=== PATIENT | male | born 1980 | race American Indian/Alaskan Native ===

== ENCOUNTER 2019-03-11 22:48 | Emergency (ER) | payer SELFPAY ==
[2019-03-12 00:06] LABS: Basophils % (Auto) 0.5 % (0.0-1.8); Eosinophils % (Auto) 0.1 % (0.0-4.3); Hematocrit 36.2 % (35.5-45.6); Hemoglobin 12.5 gm/dl (11.8-15.2); Lymphocytes # (Auto) 1.3 K/mm3 (1.2-5.4); Lymphocytes % (Auto) 13.8 % (13.4-35.0); Mean Corpuscular HGB Conc 35 % (32-34); Mean Corpuscular Volume 83 fl (84-94); Monocytes # (Auto) 0.6 K/mm3 (0.0-0.8); Monocytes % (Auto) 6.4 % (0.0-7.3); Platelet Count 173 K/mm3 (140-440); Red Blood Count 4.35 M/mm3 (3.65-5.03); Red Cell Distribution Width 13.1 % (13.2-15.2)
[2019-03-12 00:23] LABS: BUN/Creatinine Ratio 14; Blood Urea Nitrogen 14 mg/dL (9-20); Calcium 9.1 mg/dL (8.4-10.2); Hemolysis Index 4
[2019-03-12 00:39] LABS: Bilirubin,Urine NEG (Negative); Blood,Urine NEG (Negative); Color,Urine Yellow (Yellow); Mucus,Urine FEW /HPF; Protein,Urine <15 mg/dL mg/dL (Negative); Urobilinogen,Urine < 2.0 mg/dL (<2.0); WBC,Urine < 1.0 /HPF (0.0-6.0)
--- NOTE | 2019-03-12 00:55 | Emergency Department Report ---
ED Psych HPI - General Chief Complaint: Psych Stated Complaint: SUICIDAL Time Seen by Provider: 03/11/19 23:29 Source: patient, EMS Mode of arrival: Ambulatory - History of Present Illness Initial Comments: Patient is a 39-year-old -[place] male who is here because of suicidal ideations. Patient states that he just got out [facility] and really what this visit his girlfriend and his child he went to her phone and saw that she was unfaithful to him. Patient states he is very upset and he feels as though there is no reason for him to be living anymore. Patient does not have a plan in particular for how he would commit suicide. Patient is feeling very depressed. Patient denies any past medical problems. - Related Data Allergies Allergy/AdvReac Type Severity Reaction Status Date / Time No Known Allergies Allergy Unverified 03/11/19 23:43 ED Review of Systems ROS: Stated complaint: SUICIDAL Other details as noted in HPI Comment: All other systems reviewed and negative ED Past Medical Hx - Past Medical History Previous Medical History?: Yes Hx Psychiatric Treatment: Yes (BIPOLAR) Hx Asthma: Yes Additional medical history: PTSD, COLLAPSED LUNG, TUBE PLACEMENT IN HIS LEFT LUNG - Surgical History Past Surgical History?: No - Social History Smoking Status: Current Every Day Smoker Substance Use Type: Marijuana ED Physical Exam - General Limitations: No Limitations General appearance: alert, in no apparent distress - Head Head exam: Present: atraumatic, normocephalic - Eye Eye exam: Present: normal appearance - ENT ENT exam: Present: mucous membranes moist - Neck Neck exam: Present: normal inspection - Respiratory Respiratory exam: Present: normal lung sounds bilaterally. Absent: respiratory distress, wheezes, rales, rhonchi - Cardiovascular Cardiovascular Exam: Present: regular rate, normal rhythm. Absent: systolic murmur, diastolic murmur, rubs, gallop - GI/Abdominal GI/Abdominal exam: Present: soft, normal bowel sounds. Absent: distended, tenderness, guarding, rebound - Rectal Rectal exam: Present: deferred - Extremities Exam Extremities exam: Present: normal inspection - Back Exam Back exam: Present: normal inspection - Neurological Exam Neurological exam: Present: alert, oriented X3 - Psychiatric Psychiatric exam: Present: normal affect, depressed, suicidal ideation - Skin Skin exam: Present: warm, dry, intact, normal color. Absent: rash ED Course Vital Signs 03/11/19 03/11/19 03/12/19 23:25 23:45 03:00 Temperature 98.1 F 98.1 F 98.6 F Pulse Rate 92 H 92 H 94 H Respiratory 18 18 18 Rate Blood Pressure 112/78 Blood Pressure 112/78 112/61 [Left] O2 Sat by Pulse 98 98 100 Oximetry - Reevaluation(s) Reevaluation #1: 03/12/19 00:54 Patient is medically cleared at this time for placement in psychiatric facility ED Medical Decision Making - Lab Data Result diagrams: 03/11/19 23:52 03/11/19 23:52 Lab Results 03/11/19 03/11/19 03/11/19 Range/Units 23:52 23:52 23:56 WBC 9.3 (4.5-11.0) K/mm3 RBC 4.35 (3.65-5.03) M/mm3 Hgb 12.5 (11.8-15.2) gm/dl Hct 36.2 (35.5-45.6) % MCV 83 L (84-94) fl MCH 29 (28-32) pg MCHC 35 H (32-34) % RDW 13.1 L (13.2-15.2) % Plt Count 173 (140-440) K/mm3 Lymph % (Auto) 13.8 (13.4-35.0) % [place] % (Auto) 6.4 (0.0-7.3) % Eos % (Auto) 0.1 (0.0-4.3) % Baso % (Auto) 0.5 (0.0-1.8) % Lymph # 1.3 (1.2-5.4) K/mm3 [place] # 0.6 (0.0-0.8) K/mm3 Eos # 0.0 (0.0-0.4) K/mm3 Baso # 0.0 (0.0-0.1) K/mm3 Seg Neutrophils % 79.2 H (40.0-70.0) % Seg Neutrophils # 7.3 (1.8-7.7) K/mm3 Sodium 138 (137-145) mmol/L Potassium 4.1 (3.6-5.0) mmol/L Chloride 100.2 (98-107) mmol/L Carbon Dioxide 26 (22-30) mmol/L Anion Gap 16 mmol/L BUN 14 (9-20) mg/dL Creatinine 1.0 (0.8-1.5) mg/dL Estimated GFR > 60 ml/min BUN/Creatinine Ratio 14 % Glucose 89 (75-100) mg/dL Calcium 9.1 (8.4-10.2) mg/dL Urine Bilirubin (Negative) Urine RBC (Auto) (0.0-6.0) /HPF Salicylates < 0.3 L (2.8-20.0) mg/dL Acetaminophen (10.0-30.0) ug/mL Plasma/Serum Alcohol (0-0.07) % 03/11/19 03/11/19 03/12/19 Range/Units 23:56 23:56 00:10 WBC (4.5-11.0) K/mm3 RBC (3.65-5.03) M/mm3 Hgb (11.8-15.2) gm/dl Hct (35.5-45.6) % MCV (84-94) fl MCH (28-32) pg MCHC (32-34) % RDW (13.2-15.2) % Plt Count (140-440) K/mm3 Lymph % (Auto) (13.4-35.0) % [place] % (Auto) (0.0-7.3) % Eos % (Auto) (0.0-4.3) % Baso % (Auto) (0.0-1.8) % Lymph # (1.2-5.4) K/mm3 [place] # (0.0-0.8) K/mm3 Eos # (0.0-0.4) K/mm3 Baso # (0.0-0.1) K/mm3 Seg Neutrophils % (40.0-70.0) % Seg Neutrophils # (1.8-7.7) K/mm3 Sodium (137-145) mmol/L Potassium (3.6-5.0) mmol/L Chloride (98-107) mmol/L Carbon Dioxide (22-30) mmol/L Anion Gap mmol/L BUN (9-20) mg/dL Creatinine (0.8-1.5) mg/dL Estimated GFR ml/min BUN/Creatinine Ratio % Glucose (75-100) mg/dL Calcium (8.4-10.2) mg/dL Urine Bilirubin Neg (Negative) Urine RBC (Auto) 4.0 (0.0-6.0) /HPF Salicylates (2.8-20.0) mg/dL Acetaminophen < 5.0 L (10.0-30.0) ug/mL Plasma/Serum Alcohol < 0.01 (0-0.07) % Critical care attestation.: If time is entered above; I have spent that time in minutes in the direct care of this critically ill patient, excluding procedure time. ED Disposition Clinical Impression: Suicidal ideation, Encounter for psychiatric assessment Disposition: DC/TX-65 PSY HOSP/PSY UNIT Is pt being admited?: No Does the pt Need Aspirin: No Condition: Stable Time of Disposition: 04:17
[2019-03-12 01:00] LABS: Amphetamine Screen,Urine PRESUMPTIVE POSITIVE
[2019-03-12 01:17] LABS: Benzodiazepines Screen,Urine PRESUMPTIVE NEGATIVE; Cocaine Screen,Urine PRESUMPTIVE NEGATIVE; Methadone Screen,Urine PRESUMPTIVE NEGATIVE; Opiate Screen,Urine PRESUMPTIVE NEGATIVE
[2019-03-12 01:31] LABS: Cannabinoid Screen,Urine PRESUMPTIVE POSITIVE
--- NOTE | 2019-03-12 11:50 | Consultation ---
History of Present Illness - Reason for Consult Consult date: 03/12/19 Reason for consult: Mental Health Evaluation Requesting physician: NISREEN MARTINEZ - Chief Complaint Chief complaint: 'I'm crushed" - History of Present Psychiatric Illness 39 y/o/ AA male who presented to the ER for SI's. Today the patient was emotional during he assessment. He stated that he was released from shelter and found out that his child's mother was "cheating." He stated that she never told him about her actions, so he felt "betrayed." He stated that he has no reason to live now. He stated that he have not slept or days. He denies a previous suicide attempt nor have he taken any medication in the past for depression. He rate his depression 7/10, with 10 being the worse. He denies HI's and AVH's. He endorsed SI's without a plan. He denies a poor appetite. He denies smoking or ingesting amphetamines, but acknowledged smoking marijuana often. He denies alcohol consumption (etoh). Medications and Allergies Allergies Allergy/AdvReac Type Severity Reaction Status Date / Time No Known Allergies Allergy Unverified 03/11/19 23:43 Past psychiatric history - Past Medical History Past Medical History: No medical history Past Surgical History: No surgical history - past Psychiatric treatment and history psychiatric treatment history: Denies a psy hx and fam psy hx. - Social History Social history: other (Homeless) Mental Status Exam - Vital signs Last Vital Signs Temp 97.6 F 03/12/19 08:32 Pulse 88 03/12/19 08:32 Resp 16 03/12/19 08:32 BP 123/74 03/12/19 08:32 Pulse Ox 98 03/12/19 08:32 - Exam Narrative exam: MSE: Appearance: in hospital attire Behavior: regular eye contact Speech: regular rate and tone Mood: emotional Affect: congruent to mood Thought Process: circumstantial Thought Content: denies HI's and AVH's Motor Activity: ambulatory Cognition: A/O x 3 Insight: fair Judgment: poor Results Result Diagrams: 03/11/19 23:52 03/11/19 23:52 Abnormal lab results 03/11/19 03/11/19 03/11/19 Range/Units 23:52 23:56 23:56 MCV 83 L (84-94) fl MCHC 35 H (32-34) % RDW 13.1 L (13.2-15.2) % Seg Neutrophils % 79.2 H (40.0-70.0) % Salicylates < 0.3 L (2.8-20.0) mg/dL Acetaminophen < 5.0 L (10.0-30.0) ug/mL All other labs normal. Assessment and Plan Assessment and plan: Impression: MDD, Severe Type. Cannabis Use DO. Today the patient was emotional, but cooperative during the assessment. . DDx: Substance Induced Mood DO Recommendation/Plan: Continue 1013 and start Remeron 15 mg PO HS for depression. Discussed possible suicidality/medication induced ajay with the patient reference Remeron, he verbalized understanding. Dispo: The patient was referred to inpatient psy services. Will staff with Dr. Magalie Wild.
[2019-03-12] MEDS: REMERON PO SCH (22:24)
--- NOTE | 2019-03-13 11:55 | Progress Note ---
Subjective - Reason for Consult Consult date: 03/13/19 Reason for consult: Psychiatry Follow-up - Chief Complaint Chief complaint: '"It's hard" 39 y/o/ AA male who presented to the ER for SI's. Today the patient was calm and cooperative during the assessment. He stated that it's hard for him to think about what happened. He's still endorsing SI's. He denies HI's and AVH's. He denies any side effects of his medication. Mental Status Exam - Vital signs Last Vital Signs Temp 97.7 F 03/13/19 07:56 Pulse 72 03/13/19 07:56 Resp 18 03/13/19 07:56 BP 101/69 03/13/19 07:56 Pulse Ox 99 03/13/19 07:56 - Exam Narrative exam: MSE: Appearance: in hospital attire Behavior: regular eye contact Speech: regular rate and tone Mood: 'okay" Affect: congruent to mood Thought Process: circumstantial Thought Content: denies HI's and AVH's Motor Activity: ambulatory Cognition: A/O x 3 Insight: fair Judgment: poor Assessment and Plan Impression: MDD, Severe Type. Cannabis Use DO. Today the patient was calm and cooperative during the assessment. . DDx: Substance Induced Mood DO Recommendation/Plan: Continue 1013 and Remeron 15 mg PO HS for depression. Discussed possible suicidality/medication induced ajay with the patient reference Remeron, he verbalized understanding. Discussed generalized coping skills with petient, he verbalized understanding. Dispo: The patient was referred to inpatient psy services. Will staff with Dr. Magalie Wild.
[2019-03-13] MEDS: REMERON PO SCH (22:35)
--- NOTE | 2019-03-14 12:23 | Progress Note ---
Subjective - Reason for Consult Consult date: 03/14/19 Reason for consult: Psychiatry Follow-up - Chief Complaint Chief complaint: '"I'm thought about my future" 39 y/o/ AA male who presented to the ER for SI's. Today the patient was calm and cooperative during the assessment. He stated that he have thought about his future. He stated that he will make better decision and get on his "feet." He stated that his business liaison officer have a place for him to go (long-term) when discharged. He denies SI/HI's and AVH's. He denies any side effects of his medication. Mental Status Exam - Vital signs Last Vital Signs Temp 97.9 F 03/14/19 10:15 Pulse 72 03/14/19 10:15 Resp 18 03/14/19 10:15 BP 114/80 03/14/19 10:15 Pulse Ox 99 03/14/19 10:15 - Exam Narrative exam: MSE: Appearance: calm, cooperative Behavior: regular eye contact Speech: regular rate and tone Mood: 'okay" Affect: congruent to mood Thought Process: circumstantial Thought Content: denies SI/HI's and AVH's Motor Activity: ambulatory Cognition: A/O x 3 Insight: fair Judgment variable to fair Assessment and Plan Impression: MDD, Severe Type. Cannabis Use DO. Today the patient was calm and cooperative during the assessment. . DDx: Substance Induced Mood DO Recommendation/Plan: Reevaluate the patient's 1013 n 24 hours. Continue Remeron 15 mg PO HS for depression. Discussed possible suicidality/medication induced ajay with the patient reference Remeron, he verbalized understanding. Discussed generalized coping skills with petient, he verbalized understanding. Dispo: If the patient's 1013 is rescinded, he can follow up with [facility] for outpatient psy services. Will staff with Dr. Magalie Wild.
[2019-03-14] MEDS: REMERON PO SCH (23:05)
--- NOTE | 2019-03-15 08:37 | Progress Note ---
Subjective - Reason for Consult Consult date: 03/15/19 Reason for consult: Psychiatry Follow-up - Chief Complaint Chief complaint: '"I'm play" 39 y/o/ AA male who presented to the ER for SI's. Today the patient was calm and cooperative during the assessment. He stated that he look forward to being discharged. He stated that he will follow up with outpatient psy services. He denies SI/HI's and AVH's. He denies any side effects of his medication. Mental Status Exam - Vital signs Last Vital Signs Temp 97.8 F 03/15/19 03:17 Pulse 77 03/15/19 03:17 Resp 18 03/15/19 03:17 BP 124/90 03/15/19 03:17 Pulse Ox 98 03/15/19 03:17 - Exam Narrative exam: MSE: Appearance: calm, cooperative Behavior: regular eye contact Speech: regular rate and tone Mood: 'okay" Affect: congruent to mood Thought Process: linear Thought Content: denies SI/HI's and AVH's Motor Activity: ambulatory Cognition: A/O x 3 Insight: appropriate Judgment appropriate Assessment and Plan Impression: MDD, Severe Type. Cannabis Use DO. Today the patient was calm and cooperative during the assessment. The patient is not threat to self. DDx: Substance Induced Mood DO Recommendation/Plan: Rescind 1013. Continue Remeron 15 mg PO HS for depression. Discussed possible suicidality/medication induced ajay with the patient reference Remeron, he verbalized understanding. Discussed generalized coping skills with petient, he verbalized understanding. Dispo: The can follow up with [facility] for outpatient psy services. Will staff with Dr. Magalie Wild.
[2019-03-15 14:10] VITALS: BP 133/89
== END 2019-03-15 14:12 | disposition home or self-care (01) ==
LOC: ED 22:48 → EEVIPCON 22:48 → ED 03-15 14:12
DX: F32.9 Major depressive disorder, single episode, unspecified (principal); F31.9 Bipolar disorder, unspecified; J45.909 Unspecified asthma, uncomplicated; F43.10 Post-traumatic stress disorder, unspecified; F17.200 Nicotine dependence, unspecified, uncomplicated; F12.10 Cannabis abuse, uncomplicated
CPT/HCPCS: 36415; 80048; 80307; 80320; 81001; 85025; G0480